=== PATIENT | female | born 1985 | race Two or more races ===

== ENCOUNTER 2019-02-12 14:12 | Emergency (ER) | payer MEDICAID ==
--- NOTE | 2019-02-12 14:22 | ER Document Report ---
ED Medical Screen (RME) - General Chief Complaint: Pelvic Pain Stated Complaint: VAGINAL DISCOMFORT Time Seen by Provider: 02/12/19 14:19 Mode of Arrival: Ambulatory Information source: Patient Notes: 33-year-old female presents to ED for for complaint of right pelvic pain. She states she is about 5 weeks . She states this is her fact first . She states she was told she could not get and she is very concerned due to the pain. Patient is alert and oriented respirations regular nonlabored speaking in full sentences. She states she is having some vaginal itching but no bleeding. She states she has a history of PCOS. She is a former smoker. She states the cramping started last week but now it is pain. I have greeted and performed a rapid initial assessment of this patient. A comprehensive ED assessment and evaluation of the patient, analysis of test results and completion of medical decision making process will be conducted by an additional ED providers.
[2019-02-12 14:55] LABS: ABSOLUTE EOSINOPHILS # (AUTO) 0.1 10^3/uL (0.0-0.6); ABSOLUTE LYMPHOCYTES (AUTO) 1.8 10^3/uL (0.5-4.7); ABSOLUTE MONOCYTES (AUTO) 0.5 10^3/uL (0.1-1.4); ABSOLUTE NEUT (AUTO) 6.3 10^3/uL (1.7-8.2); BASOPHILS % (AUTO) 0.6 % (0-2); EOSINOPHILS % (AUTO) 1.5 % (0-6); HEMATOCRIT 39.8 % (36.0-47.0); HEMOGLOBIN 13.4 g/dL (12.0-15.5); LYMPHOCYTES % (AUTO) 20.8 % (13-45); MEAN CORPUSCULAR HEMOGLOBIN 30.6 pg (27.0-33.4); MEAN CORPUSCULAR HGB CONC 33.6 g/dL (32.0-36.0); MEAN CORPUSCULAR VOLUME 91 fl (80-97); MONOCYTES % (AUTO) 5.8 % (3-13); PLATELET COUNT 203 10^3/uL (150-450); RED BLOOD COUNT 4.38 10^6/uL (3.72-5.28); RED CELL DISTRIBUTION WIDTH 14.6 % (11.5-14.0); SEGMENTED NEUTROPHILS % (AUTO) 71.3 % (42-78); TOTAL CELLS COUNTED % (AUTO) 100 %; WHITE BLOOD COUNT 8.9 10^3/uL (4.0-10.5)
[2019-02-12 14:56] LABS: APPEARANCE,URINE CLEAR; BILIRUBIN,URINE NEGATIVE (NEGATIVE); COLOR,URINE YELLOW; GLUCOSE, URINE NEGATIVE (NEGATIVE); KETONES,URINE NEGATIVE (NEGATIVE); PROTEIN,URINE NEGATIVE (NEGATIVE); URINE SPECIFIC GRAVITY 1.016; UROBILINOGEN,URINE NEGATIVE mg/dL (<2.0)
[2019-02-12 15:07] LABS: ALBUMIN 4.1 g/dL (3.5-5.0); ALKALINE PHOSPHATASE 57 U/L (38-126); ANION GAP 9 (5-19); ASPARTATE AMINO TRANSFERASE 13 U/L (14-36); BILIRUBIN,TOTAL 0.3 mg/dL (0.2-1.3); BLOOD UREA NITROGEN 9 mg/dL (7-20); CALCIUM 9.3 mg/dL (8.4-10.2); CARBON DIOXIDE 26 mmol/L (22-30); CHLORIDE 103 mmol/L (98-107); GLUCOSE 129 mg/dL (75-110); POTASSIUM 3.6 mmol/L (3.6-5.0)
[2019-02-12] MEDS ORDERED: ACETAMINOPHEN 325 MG TABLET PO ONE (15:53)
--- NOTE | 2019-02-12 16:00 | ER Document Report ---
ED GI/ - General Chief Complaint: Pelvic Pain Stated Complaint: VAGINAL DISCOMFORT Time Seen by Provider: 02/12/19 14:19 Mode of Arrival: Ambulatory Notes: 33-year-old G1, P1 female with hypertension, PCOS, and history of migraine headaches presents to the emergency department with chief complaint of right adnexal pain for 1 week. Patient believes she is about 5 weeks , LMP 01/07/2019. Patient is concerned because she was told in the past she cannot get . She states the pain is crampy in nature, worse on the right side but occasionally bilateral, intermittent, denies vaginal bleeding, does complain of vaginal itching. Patient denies any urinary urgency, dysuria, urinary frequency. No other complaints - Related Data Allergies/Adverse Reactions: tramadol Allergy (Verified 02/12/19 14:26) Home Medications: Lyrica. Topamax. Lisinopril. Cymbalta. Vitamin D Past Medical History - General Information source: Patient Last Menstrual Period: 01/07/19 - Social History Smoking Status: Former Smoker Frequency of alcohol use: None Drug Abuse: None Family History: None Patient has suicidal ideation: No Patient has homicidal ideation: No - Past Medical History Cardiac Medical History: Reports: Hx Hypertension Review of Systems - Review of Systems Constitutional: See HPI EENT: No symptoms reported Cardiovascular: No symptoms reported Respiratory: No symptoms reported Gastrointestinal: See HPI Genitourinary: See HPI Female Genitourinary: See HPI Musculoskeletal: No symptoms reported Skin: No symptoms reported Hematologic/Lymphatic: No symptoms reported Neurological/Psychological: No symptoms reported Physical Exam - Vital signs Vitals: Temp Pulse Resp BP Pulse Ox 98.5 F 78 18 127/84 H 95 02/12/19 14:19 02/12/19 14:19 02/12/19 14:19 02/12/19 14:19 02/12/19 14:19 - Notes Notes: PHYSICAL EXAMINATION: Reviewed vital signs and charting by RN GENERAL: Alert, interacts well. No acute distress. HEAD: Normocephalic, atraumatic. EYES: Pupils equal and round. Extraocular movements intact. ENT: Oral mucosa moist, tongue midline. NECK: Full range of motion. Trachea midline. LUNGS: Clear to auscultation bilaterally, no wheezes, rales, or rhonchi. No respiratory distress. HEART: Regular rate and rhythm. No murmur ABDOMEN: soft, tenderness to palpation right lower quadrant with some mild tenderness in the left lower quadrant. No distention. Bowel sounds present EXTREMITIES: Moves all 4 extremities spontaneously. No edema, No cyanosis. PSYCH: Normal affect, normal mood. SKIN: Warm, dry, normal turgor. No rashes or lesions noted. Course - Re-evaluation Re-evalutation: 02/12/19 15:59 Well-appearing in no acute distress. Lab work complete. No leukocytosis, no anemia. Beta hCG 10,229. Urinalysis does not show evidence of urinary tract infection. Transvaginal ultrasound pending. 02/12/19 16:51 Patient did perform a self swab and the wet mount was consistent with bacterial vaginosis. We will give her Flagyl 500 mg once here and give her a seven-day prescription. Ultrasound still pending. 02/12/19 17:48 Ultrasound showed a intrauterine gestational sac measuring 5 weeks 5 days. No c omment on heart tone but is still very early. Beta hCG correlates to the size of the gestational sac. Report given to patient and she is stable for discharge. - Vital Signs Vital signs: Temp Pulse Resp BP Pulse Ox 98.0 F 71 14 113/62 100 02/12/19 17:58 02/12/19 17:58 02/12/19 17:58 02/12/19 17:58 02/12/19 17:58 - Laboratory Result Diagrams: 02/12/19 14:34 02/12/19 14:34 Laboratory results interpreted by me: 02/12/19 02/12/19 14:34 14:34 RDW 14.6 H Glucose 129 H AST 13 L Beta HCG, Quant 64290.00 H Discharge - Discharge Clinical Impression: Pelvic pain, Bacterial vaginosis in , Intrauterine Condition: Good Disposition: HOME, SELF-CARE Additional Instructions: Your beta hCG level was 10,229 and ultrasound showed a gestational sac measuring 5 weeks and 5 days. It did not identify a heart tone at this time because it is probably too early in your . You are being treated for bacterial vaginosis in , an overgrowth of normal bacteria in the vagina. You are being sent home on an antibiotic called metronidazole. Take exactly as directed. Never drink alcohol while taking this antibiotic. Please return if you develop worsening abdominal pain, vaginal bleeding, normal vaginal discharge, fever greater than 101F, some vomiting, or any other symptoms that are concerning to you. Prescriptions: Metronidazole [Flagyl 500 mg Tablet] 500 mg PO Q12H 7 Days #14 tablet
[2019-02-12 16:41] LABS: BACTERIA (WET MOUNT) 4+ BACTERIA SEEN; EPITHELIALS (WET MOUNT) 4+ EPITHELIALS SEEN; T.VAGINALIS (WET MOUNT) NO TRICHOMONAS SEEN; WBCS (WET MOUNT) 2+ WBCS SEEN; YEAST (WET MOUNT) BUDDING YEAST SEEN
[2019-02-12] MEDS ORDERED: METRONIDAZOLE 500 MG TABLET PO ONE (16:48)
--- NOTE | 2019-02-12 17:26 | RADIOLOGY REPORT (SQ) ---
EXAM DESCRIPTION: U/S OB TRANSVAG W/DOPPLER COMPLETED DATE/TIME: 02/12/2019 5:14 pm REASON FOR STUDY: right pelvic pain COMPARISON: None. TECHNIQUE: Endovaginal static and realtime grayscale images acquired of the pelvis. Additional selec tre spectral and color Doppler images recorded. All images stored on PACs. CLINICAL AGE: Last menses 01/07/2019, estimated age 5 weeks 1 day bHC,229 LIMITATIONS: None. FINDINGS: UTERUS: No masses. No anomalies. Uterus is 8 x 6 x 5 cm in size GESTATIONAL SAC: Normal shape. Mean sac diameter generates an estimated age of 5 weeks 5 days, estim ated due date 10/10/2019 YOLK SAC: 5 mm yolk sac identified POLE: None present. RIGHT ADNEXA: Normal ovary with normal vascular flow. Right ovary is 3.7 x 2.7 x 2.9 cm in size with a 2.3 x 2 cm corpus luteal cyst. No adnexal free fluid. No adnexal masses. LEFT ADNEXA: Normal ovary with normal vascular flow. Left ovary 3.6 x 2.6 x 2.1 cm in size. No adnexal free fluid. No adnexal masses. FREE FLUID: None. OTHER: No other significant finding. IMPRESSION: EARLY INTRAUTERINE . BHCG LEVEL APPROPRIATE FOR ENDOMETRIAL FINDINGS. CONSIDER F/U BHCG AND/OR ULTRASOUND FOR VERIFICATION AND TO EXCLUDE ECTOPIC . Trimester of : First trimester - 0 to 13 weeks. TECHNICAL DOCUMENTATION: JOB ID: [id number] [employer]- All Rights Reserved Reading location - IP/workstation name: [email or web address]
[2019-02-12 17:42] LABS: CHLAM PCR NOT DETECTED (NOT DETECT)
[2019-02-12 18:01] VITALS: BP 113/62
== END 2019-02-12 18:01 | disposition home or self-care (01) ==
LOC: ER 14:12
DX: O23.591 Infection of other part of genital tract in pregnancy, first trimester (principal); B96.89 Other specified bacterial agents as the cause of diseases classified elsewhere; O26.891 Other specified pregnancy related conditions, first trimester; R10.2 Pelvic and perineal pain; O99.281 Endocrine, nutritional and metabolic diseases complicating pregnancy, first trimester; E28.2 Polycystic ovarian syndrome; O16.1 Unspecified maternal hypertension, first trimester; Z3A.01 Less than 8 weeks gestation of pregnancy; Z87.891 Personal history of nicotine dependence
CPT/HCPCS: 36415; 76817; 80053; 81001; 84702; 85025; 86900; 86901; 87210; 87491; 87591; 93976; 99284